=== PATIENT | male | born 2000 | race Caucasian/White ===

== ENCOUNTER 2018-04-25 22:59 | Emergency (ER) | payer BC ==
[2018-04-25] MEDS ORDERED: Ondansetron ODT 8 MG TAB ONE ×2 (23:14→23:15)
[2018-04-25 23:29] LABS: #Basophils 0.1 thou/uL (0.0-0.2); #Eosinphils 0.1 thou/uL (0.0-0.7); #Monocytes 0.7 thou/uL (0.11-0.59); #Neutrophils 4.7 thou/uL (1.40-6.50); %Basophils 1.7 % (0.0-1.0); %Eosinophils 1.5 % (0.0-10.0); %Lymphocytes 34.6 % (28.0-48.0); %Monocytes 7.9 % (0.0-4.0); %Neutrophils 54.3 % (31.0-61.0); Hemoglobin 17.6 g/dL (14.0-18.0); Mean Corpuscular HGB CONC 35.4 g/dL (32.0-36.0); Mean Corpuscular Hemoglobin 31.3 pg (25.0-35.0); Mean Corpuscular Volume 88.5 fL (78.0-98.0); Mean Platelet Volume 6.3 fL (7.4-10.4); Platelet Count 241 thou/uL (130-400); RBC Distribution Width 11.2 % (11.5-14.5); Red Blood Cell (RBC) Count 5.61 mill/uL (4.00-5.20); White Blood Cell (WBC) Count 8.7 thou/uL (4.8-10.8)
[2018-04-25 23:44] LABS: ALT (SGPT) 17 U/L (8-55); AST (SGOT) 24 U/L (5-34); Alkaline Phosphatase 68 U/L (Less than 750); Anion Gap 14 mmol/L (10-20); BUN (Urea Nitrogen) 10 mg/dL (8.9-20.6); Bilirubin, Total 0.9 mg/dL (0.2-1.2); Calc. Creatinine Clearance 0 mL/min (70-130); Calcium 10.3 mg/dL (7.8-10.44); Carbon Dioxide 29 mmol/L (22-29); Chloride 102 mmol/L (98-107); Estimated GFR-MDRD 80; Globulin 2.9 g/dL (2.4-3.5); Glucose 90 mg/dL (70-105); Lipase 26 U/L (8-78); Potassium 4.1 mmol/L (3.5-5.1); Protein, Total 7.9 g/dL (6.0-8.3); Sodium 141 mmol/L (136-145)
== END 2018-04-25 23:55 | disposition home or self-care (01) ==
LOC: SCSER 22:59
DX: R10.9 Unspecified abdominal pain (principal)
CPT/HCPCS: 36415; 80053; 83690; 85025; 96372; J0500